=== PATIENT | female | born 1955 | race Two or more races ===

== ENCOUNTER 2025-02-06 08:17 | Emergency (ER) | payer MEDICARE, SELFPAY ==
[2025-02-06 08:33] VITALS: BP 138/90; PULSE 89; RESP 18; TEMP 36.9; O2SAT 99; BMI 20.2
--- NOTE | 2025-02-06 08:37 | EDNOTE_ITS ---
<Statement entered by Rhoda Blackwell MD - 02/18/25 11:17> As co-signing physician, I was present and available for consult prn. I concur with the plan and care as documented by the midlevel provider. ED Extremity Problem RME/HPI General Chief complaint: Extremity Problem,Nontraumatic Stated complaint: RIGHT ARM PAIN S/P FALL 1 WEEK AGO Time Seen by Provider: 02/06/25 08:22 Arrival date/time: 02/06/25 08:17 69-year-old female with a history of type 2 diabetes presents to the emergency room with a chief complaint of tenderness and pain to her right shoulder x 2 weeks. Patient states she had a ground-level fall in which she slipped and injured her right shoulder. Limitations: no limitations Related Data Home Medications ?Medication ?Instructions ?Recorded ?Confirmed glipizide 5 mg tablet 5 mg PO BID 01/04/21 2 metformin 1,000 mg tablet 1,000 mg PO BID 01/04/2108/27 omeprazole 20 mg capsule,delayed 20 mg PO QDAY PRN Aci d Reflux 04/19/21 07/11/21 release ibuprofen 600 mg tablet 600 mg PO TID PRN Pain 07/0907/11/21 pioglitazone 30 mg tablet 30 mg PO DAILY 07/09/2108/27 Previous Rx's ?Medication ?Instructions ?Recorded acetaminophen 300 mg-codeine 30 mg 1 tab PO Q6H PRN pa in #10 tabs 07/11/21 tablet cephalexin 500 mg capsule 500 mg PO BID #3 caps Allergies Allergy/AdvReac Type Severity Reaction Status Date / Time No Known Allergies Allergy Verified 01/04/22 08:08 Review of Systems Review of Systems Systems Reviewed: All systems reviewed, normal except as documented Constitutional Constitutional: Reports system reviewed and no additional complaints, except as documented, Denies fatigue, Denies fever(s), Denies headache(s) and Denies weakness Eyes Eyes: Reports system reviewed and no additional complaints, except as documented, Denies blurry vision and Denies change in vision ENT Ears, Nose, Mouth, and Throat: Reports system reviewed and no additional complaints, except as documented, Denies otalgia, Denies headache(s), Denies nasal congestion, Denies throat swelling and Denies vertigo Cardiovascular Cardiovascular: Reports system reviewed and no additional complaints, except as documented, Denies chest pain, Denies dyspnea and Denies dyspnea on exertion Respiratory Respiratory: Reports system reviewed and no additional complaints, except as documented, Denies chest congestion, Denies cough, Denies dyspnea, Denies dyspnea on exertion and Denies wheezing Gastrointestinal Gastrointestinal: Reports system reviewed and no additional complaints, except as documented, Denies abdominal pain, Denies cramping, Denies nausea and Denies vomiting Genitourinary Genitourinary: Reports system reviewed and no additional complaints, except as documented Musculoskeletal Musculoskeletal: Reports system reviewed and no additional complaints, except as documented, Reports arthralgias, Denies back pain, Denies joint swelling and Reports limited range of motion Integumentary/Breasts Skin/Breast: Reports system reviewed and no additional complaints, except as documented and Denies wounds Neurologic Neurologic: Reports system reviewed and no additional complaints, except as documented, Denies confusion, Denies headache(s), Denies lack of coordination, Denies vertigo and Denies weakness Psychiatric Psychiatric: Reports system reviewed and no additional complaints, except as documented, Denies anxiety, Denies confusion, Denies depression, Denies paranoia, Denies suicidal ideation and Denies tactile hallucinations Endocrine Endocrine: Reports system reviewed and no additional complaints, except as documented and Denies fatigue Hematologic/Lymphatic Hematologic/Lymphatic: Reports system reviewed and no additional complaints, except as documented and Denies lymphadenopathy Allergic/Immunologic Allergic/Immunologic: Reports system reviewed and no additional complaints, except as documented, Denies throat swelling, Denies urticaria and Denies wheezing ED Exam General Limitations: Present no limitations General appearance: Present alert and in no apparent distress Head Head exam: Present atraumatic Eye Eye exam: Present normal appearance, PERRL and EOMI ENT ENT exam: Present normal exam, normal oropharynx and mucous membranes moist Neck Neck exam: Present normal inspection, full ROM and trachea midline Chest Chest inspection: Present normal inspection and symmetric chest wall rise Respiratory Respiratory exam: Present normal lung sounds bilaterally Cardiovascular Cardiovascular exam: Present regular rate, normal rhythm and normal heart sounds Abdominal Exam Abdominal exam: Present soft and normal bowel sounds Extremities Exam Extremities exam: Present normal inspection and full ROM Back Exam Back exam: Present normal inspection and full ROM Neurological Exam Neurological exam: Present alert, oriented X3 and CN II-XII intact Psychiatric Psychiatric exam: Present normal affect and normal mood Skin Skin exam: Present warm, dry, intact and normal color Course Quality Measures none Orders Category Date Time Status sling [Splint / Immobilizer] STAT Care 02/06/25 08:36 Active Ketorolac Inj [Toradol Inj] Med 02/06/25 08:36 Discontinued 30 mg IM X1 ONE Vital Signs Vital signs: Vital Signs Temperature 98.5 F 02/06/25 08:33 Pulse Rate 89 02/06/25 08:33 Respiratory Rate 18 02/06/25 08:33 Blood Pressure 138/90 H 02/06/25 08:33 Pulse Oximetry (%) 99 02/06/25 08:33 Oxygen Delivery Method Room Air 02/06/25 08:33 Extremity Problem MDM Narrative MDM Narrative:: 69-year-old female with a history of type 2 diabetes presents to the emergency room with a chief complaint of tenderness and pain to her right shoulder x 2 weeks. Patient states she had a ground-level fall in which she slipped and injured her right shoulder. Patient states she has had imaging which was negative for any acute fractures or dislocations. Physical examination shows tenderness to the AC joint. The patient also has a very limited range of motion and is unable to lift her arm above her head. Patient states she has had imaging completed which was negative for any acute fracture or dislocation. Patient states this occurred 2 weeks ago and the pain is still hurting her. The patient was educated that she will need to follow-up with her primary care provider as a referral for an MRI to assess for any ligament damage or tears may be indicated. Patient was discharged and educated to follow-up with primary care provider in the next 24 to 48 hours and return to the emergency room for any evidence of worsening signs or symptoms Patient data External records reviewed:: [facility] previous records Clinical information provided by:: patient Social determinants that could affect healthcare access:: none Patient has the following chronic illnesses:: No chronic illness How is presenting disease/condition affected by chronic disease/condition?: no chronic disease Evaluation data The following diagnostics were reviewed and interpreted by me:: lab results and radiology exam(s) Lab and/or radiology exams considered but not ordered:: Labs and radiology exams considered in order Interpretation Summary: N/A Medications / Prescriptions Medications or Prescriptions considered but not ordered:: Medication given Medication administrations:: Medication Administration History Discontinued Medications Ketorolac Tromethamine (Ketorolac Inj 60 Mg/2 Ml Vial) 30 mg IM X1 ONE Stop: 02/06/25 08:37 Last Admin: 02/06/25 08:52 Dose: 30 mg Documented By: BOBBY Medication given Consultations Consultation(s) initiated? (list below): No Diagnosis Extremity Problem Differential Diagnosis: other (Right shoulder sprain/right shoulder fracture/ligament damage and shoulder) Most likely diagnosis given after review of the tests above:: Right shoulder sprain Admission Indicated Admission indicated?: not indicated Admission Request Was there a request for admission?: No Disposition Plan Disposition Plan: Discharge Discharge Attestation Discharge Attestation: The patient and all family members were given an opportunity to ask questions and understood the discharge instructions. Discharge instructions specifically effects, indications for sooner follow up or return to the emergency department, and the expected course of current diagnosis. Patient condition: Stable Discharge Plan Plan Patient Disposition: HOME (Self Care) Discharge Disposition comment: Stable Prescriptions/Referrals Prescriptions/Med Rec: No Action omeprazole 20 mg Capsule,Delayed Release(Dr/Ec) 20 mg PO QDAY PRN (Reason: Acid Reflux) ibuprofen 600 mg tablet 600 mg PO TID PRN (Reason: Pain) pioglitazone 30 mg tablet 30 mg PO DAILY acetaminophen-codeine 300-30 mg tablet 1 tab PO Q6H PRN (Reason: pain) Qty: 10 0RF cephalexin 500 mg capsule 500 mg PO BID Qty: 3 0RF metformin 1,000 mg Tablet 1,000 mg PO BID glipizide 5 mg tablet 5 mg PO BID Problem List Clinical Impression: Sprain of right shoulder Patient/Caregiver Discharge Instructions Education Materials: ED Shoulder Sprain Additional Instructions: Por favor, consulte con castro m?dico de cabecera en las pr?ximas 24 a 48 horas. Me menciona que ya le realizaron estudios de imagen del hombro y que las im?genes fueron negativas para fracturas o luxaciones agudas. A?n tiene un rango de movimiento muy limitado y le recomiendo que acuda a castro m?dico de cabecera para que le realicen ciro resonancia magn?beatrice ambulatoria del hombro y eval?e si hay da?o o desgarro de ligamentos. Si observa alg?n empeoramiento de los signos o s?ntomas, acuda a urgencias de inmediato. Print Language: Welsh Stand Alone Forms: Emy Award Info., Patient Portal Info Letter PA/PRODUCTION CONTROL SCHEDULER Supervising Physician PA/PRODUCTION CONTROL SCHEDULER Supervising Physician: Dr. BLACKWELL
[2025-02-06] MEDS: KETOROLAC INJ 60 MG/2 ML VIAL 30 MG IM (08:52)
== END 2025-02-06 10:00 | disposition home or self-care (01) ==
LOC: SERX 09:14
PROVIDERS: Emergency Provider Nurse Practitioner Family; PCP Physician Assistant
DX: S43.401A Unspecified sprain of right shoulder joint, initial encounter (principal); W01.0XXA Fall on same level from slipping, tripping and stumbling without subsequent striking against object, initial encounter
CPT/HCPCS: 96372; 99284; J1885

== ENCOUNTER 2025-03-17 10:41 | Emergency (ER) | payer MEDICARE, MEDICAID, SELFPAY ==
[2025-03-17 10:45] VITALS: BP 145/80; PULSE 89; RESP 18; TEMP 36.8; O2SAT 95
--- NOTE | 2025-03-17 10:59 | XR_ITS ---
Examination: CT abdomen with intravenous contrast CT pelvis with intravenous contrast 2-D coronal reconstructions 2-D sagittal reconstructions Date and time of exam: March 17, 2025, 12:37 p.m INDICATIONS: Generalized abdominal pain and nausea beginning 3 days ago. CTDI: vol (mGy) 4.26 DLP: (mGycm) 210 Technique: Multiple axial sections of the abdomen and pelvis have been obtained. 64 slice high-resolution scanner used. 3 mm axial sections have been obtained, post intravenous injection 60 cc [id number] 2-D sagittal, coronal reconstructions obtained. Low dose protocols were performed. One or more of the following dose reduction techniques were used; automated exposure control, adjustment of the mA and/or KV according to patient size, use of iterative reconstruction technique. Findings: No focal liver lesions No gallstones Common bile duct is not enlarged Spleen is unremarkable No pancreatic or adrenal mass. Edema involving the right kidney Air in the right renal collecting system Mild right hydronephrosis Aortic calcification no aneurysmal dilatation No bowel obstruction Normal appendix No diverticulitis Atrophic anteverted uterus No bladder mass Prominent osteopenia IMPRESSION: Right pyelonephritis Normal appendix No bowel obstruction
--- NOTE | 2025-03-17 11:23 | PD.EDABDPN ---
ED Abdominal Pain RME/HPI General Chief Complaint: Abdominal Pain Stated complaint: ABDOMINAL PAIN Time seen by provider: 03/17/25 10:58 Arrival date/time: 03/17/25 10:41 Limitations: no limitations RME / HPI RME / HPI narrative: 69 year old female with history of diabetes presents to the ED BIBA from home for evaluation of abdominal pain beginning 5-6 days ago and worsening this morning. Described as aching in sensation that is located diffusely, rating 9/10 in severity. Accompanied by nausea, vomiting, and some constipation. Denies any fevers, chills, chest pain, cough, shortness of breath, or dysuria. Related Data Home Medications ?Medication ?Instructions ?Recorded ?Confirmed glipizide 5 mg tablet 5 mg PO BID 01/04/21 07/11/21 metformin 1,000 mg tablet 1,000 mg PO BID 01/04/21 07/11/21 omeprazole 20 mg capsule,delayed 20 mg PO QDAY PRN Acid Reflux 04/19/21 07/11/21 release ibuprofen 600 mg tablet 600 mg PO TID PRN Pain 07/09/21 07/11/21 pioglitazone 30 mg tablet 30 mg PO DAILY 07/09/21 07/11/21 Previous Rx's ?Medication ?Instructions ?Recorded acetaminophen 300 mg-codeine 30 mg 1 tab PO Q6H PRN pain #10 tabs 07/11/21 tablet cephalexin 500 mg capsule 500 mg PO BID #3 caps 07/11/21 Allergies Allergy/AdvReac Type Severity Reaction Status Date / Time No Known Allergies Allergy Verified 01/04/22 08:08 Review of Systems Review of Systems Systems Reviewed: All systems reviewed, normal except as documented Past Medical History Past Medical History CARDIAC: Positive Hypertension RESPIRATORY: Positive Asthma GASTROINTESTINAL: Positive Gastrointestinal Disorders and Gastroesophageal Reflux Disease REPRODUCTIVE: Positive Previous Pregnancies MUSCULOSKELETAL: Positive Musculoskeletal Disorders and Arthritis ENT: Positive Cataracts and Deafness ENDOCRINE: Positive Endocrine Disorders and Diabetes Mellitus Type 2 (glipizide) OTHER HISTORY: Positive Chicken Pox and Measles Family History FAMILY HISTORY: Positive Family Cancer Surgical History SURGICAL: Positive Tubal Ligation Social History SMOKING STATUS: Never smoker ED Exam General Limitations: Present no limitations General appearance: Present alert and other (appears uncomfortable) Head Head exam: Present atraumatic, normocephalic and normal inspection Eye Eye exam: Present normal appearance, PERRL and EOMI ENT ENT exam: Present normal exam, normal oropharynx and mucous membranes moist Neck Neck exam: Present normal inspection, full ROM and trachea midline Chest Chest inspection: Present normal inspection and symmetric chest wall rise Respiratory Respiratory exam: Present normal lung sounds bilaterally Cardiovascular Cardiovascular exam: Present regular rate, normal rhythm and normal heart sounds Abdominal Exam Abdominal exam: Present soft, tenderness (mildly tender mid upper abdomen, not localized to the right lower quadrant, no percussion tenderness) and normal bowel sounds Extremities Exam Extremities exam: Present normal inspection and full ROM Back Exam Back exam: Present normal inspection and full ROM Neurological Exam Neurological exam: Present alert, oriented X3 and CN II-XII intact Psychiatric Psychiatric exam: Present normal affect and normal mood Skin Skin exam: Present warm, dry, intact and normal color Course Quality Measures none Orders Category Date Time Status CT Screening NOW Care 03/17/25 11:02 Active Twister Tender Paper STAT Care 03/17/25 11:02 Active Continuous Pulse Oximetry STAT Care 03/17/25 11:02 Completed In and Out Catheter X1 Care 03/17/25 14:30 Active Insert IV STAT Care 03/17/25 11:02 Active NPO STAT Care 03/17/25 11:02 Active Referral - Furniture And Bedding Inspector Stat Cons 03/17/25 15:[address] abdomen pelvis w con Stat Exams 03/17/25 10:59 Completed Blood Culture (Lab) Stat Lab 03/17/25 15:10 Received CBC Stat Lab 03/17/25 11:26 Completed Comprehensive Metabolic Panel Stat Lab 03/17/25 11:26 Completed Lactate (Lactic Acid) Stat Lab 03/17/25 15:06 Completed Lipase Stat Lab 03/17/25 11:26 Completed Magnesium Stat Lab 03/17/25 11:26 Completed Prothrombin Time with INR Stat Lab 03/17/25 11:26 Completed Urinalysis Stat Lab 03/17/25 14:47 Completed Imipenem/Cilastatin Inj [Primaxin Inj] 1,000 mg Med 03/17/25 15:40 Discontinued Sodium Chloride 0.9% 250 ml [Ns] 250 ml IV X1 Morphine* Inj Med 03/17/25 10:59 Discontinued 2 mg IVP X1 ONE Ondansetron Inj [Zofran Inj] Med 03/17/25 11:02 Discontinued 4 mg IVP X1 ONE Pantoprazole Inj [Protonix Inj] Med 03/17/25 11:03 Discontinued 40 mg IVP X1 ONE Sodium Chloride 0.9% 1000 ml [Ns] 1,000 ml Med 03/17/25 10:59 Discontinued IV 999 mls/hr Sodium Chloride 0.9% 1000 ml [Ns] 1,000 ml Med 03/17/25 14:48 Discontinued IV 999 mls/hr cefTRIAXone [Rocephin] 2 gm Med 03/17/25 14:46 Discontinued SODIUM CHLORIDE 0.9% (Popper) [Ns 0.9% (P)] 50 ml IV X1 Vital Signs Vital signs: Vital Signs Temperature 98.2 F 03/17/25 10:45 Pulse Rate 89 03/17/25 10:45 Respiratory Rate 18 03/17/25 10:45 Blood Pressure 145/80 H 03/17/25 10:45 Pulse Oximetry (%) 95 03/17/25 10:45 Oxygen Delivery Method Room Air 03/17/25 10:45 Pulse ox is 95% on room air which is adequate. Abdominal Pain MDM MDM Narrative MDM Narrative:: IJosefa, kaylyn scribing for and in the presence of Dr. Norwood. The CT scan of abdomen/pelvis shows she had right pyelonephritis with air present in the body of the right kidney. The urine is positive for UTI. WBC is elevated at 25.3. I discussed case with hospitalist team C. However, have decided to transfer the patient for urology and infectious disease. Patient had received Rocephin prior to CT results but will add Imipenem 1 gram x 1. I discussed findings with the patient and family. They are in agreement with plan to transfer. 1705: I spoke with transfer nurse at Dr. Chew at [facility]. Discussed patients PMHx, HPI, ED course, exam findings, labs, and radiology results. They accept the patient for transfer, ER to ER. Patient data External records reviewed:: [facility] previous records and EMS form Clinical information provided by:: patient and EMS Social determinants that could affect healthcare access:: none Patient has the following chronic illnesses:: diabetes How is presenting disease/condition affected by chronic disease/condition?: exacerbated by Evaluation data The following diagnostics were reviewed and interpreted by me:: lab results and radiology exam(s) Lab and/or radiology exams considered but not ordered:: None Interpretation Summary: Ordering Physician: Bal Norwood MD Date of Service: 03/17/25 Procedure(s): CT abdomen pelvis w con Accession Number(s): [id number] cc: Bal Norwood MD; Zac Bales PA-C; Alcides Thomson MD~ Examination: CT abdomen with intravenous contrast CT pelvis with intravenous contrast 2-D coronal reconstructions 2-D sagittal reconstructions Date and time of exam: March 17, 2025, 12:37 p.m INDICATIONS: Generalized abdominal pain and nausea beginning 3 days ago. CTDI: vol (mGy) 4.26 DLP: (mGycm) 210 Technique: Multiple axial sections of the abdomen and pelvis have been obtained. 64 slice high-resolution scanner used. 3 mm axial sections have been obtained, post intravenous injection 60 cc [id number] 2-D sagittal, coronal reconstructions obtained. Low dose protocols were performed. One or more of the following dose reduction techniques were used; automated exposure control, adjustment of the mA and/or KV according to patient size, use of iterative reconstruction technique. Findings: No focal liver lesions No gallstones Common bile duct is not enlarged Spleen is unremarkable No pancreatic or adrenal mass. Edema involving the right kidney Air in the right renal collecting system Mild right hydronephrosis Aortic calcification no aneurysmal dilatation No bowel obstruction Normal appendix No diverticulitis Atrophic anteverted uterus No bladder mass Prominent osteopenia IMPRESSION: Right pyelonephritis Normal appendix No bowel obstruction Dictated By: Alcides Thomson MD Signed By: <Electronically signed by Alcides Thomson MD in OV> 03/17/25 1331 Medications / Prescriptions Medications or Prescriptions considered but not ordered:: None Medication administrations:: Medication Administration History Discontinued Medications Sodium Chloride (Ns) 1,000 mls @ 999 mls/hr IV .Q1H1M ONE Stop: 03/17/25 11:59 Last Infusion: 03/17/25 12:34 Dose: Infused Documented By: Admin: 03/17/25 11:33 Dose: 999 mls/hr Documented By: EF Ceftriaxone Sodium 2 gm/ (Sodium Chloride) 50 mls @ 100 mls/hr IV X1 ONE Stop: 03/17/25 15:15 Last Infusion: 03/17/25 15:33 Dose: Infused Documented By: Admin: 03/17/25 15:03 Dose: 100 mls/hr Documented By: TM Sodium Chloride (Ns) 1,000 mls @ 999 mls/hr IV .Q1H1M ONE Stop: 03/17/25 15:48 Last Infusion: 03/17/25 16:07 Dose: Infused Documented By: Admin: 03/17/25 15:06 Dose: 999 mls/hr Documented By: TM Imipenem/Cilastatin Sodium 1, (000 mg/ Sodium Chloride) 250 mls @ 250 mls/hr IV X1 ONE Stop: 03/17/25 16:39 Last Admin: 03/17/25 16:10 Dose: 250 mls/hr Documented By: TM Morphine Sulfate (Morphine Sulf Inj 4 Mg/Ml Vial) 2 mg IVP X1 ONE Stop: 03/17/25 11:00 Last Admin: 03/17/25 11:34 Dose: 2 mg Documented By: EF Ondansetron HCl (Ondansetron Inj 2 Mg/Ml Inj 2 Ml) 4 mg IVP X1 ONE Stop: 03/17/25 11:03 Last Admin: 03/17/25 11:34 Dose: 4 mg Documented By: EF Pantoprazole Sodium (Pantoprazole Inj 40 Mg Vial) 40 mg IVP X1 ONE Stop: 03/17/25 11:04 Last Admin: 03/17/25 11:34 Dose: 40 mg Documented By: EF See above Consultations Consultation(s) initiated? 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 Admission Indicated Admission indicated?: not indicated Explain why admission is indicated or not indicated:: txfer for uro Admission Request Was there a request for admission?: No Disposition Plan Disposition Plan: Transfer Discharge Plan Plan Patient Disposition: [facility] Pt Being Transferred to: [facility] Service Needed for Transfer: Urology Prescriptions/Referrals Prescriptions/Med Rec: No Action omeprazole 20 mg Capsule,Delayed Release(Dr/Ec) 20 mg PO QDAY PRN (Reason: Acid Reflux) ibuprofen 600 mg tablet 600 mg PO TID PRN (Reason: Pain) pioglitazone 30 mg tablet 30 mg PO DAILY acetaminophen-codeine 300-30 mg tablet 1 tab PO Q6H PRN (Reason: pain) Qty: 10 0RF cephalexin 500 mg capsule 500 mg PO BID Qty: 3 0RF metformin 1,000 mg Tablet 1,000 mg PO BID glipizide 5 mg tablet 5 mg PO BID Referrals: Zac Bales PA-C [Primary Care Provider] - In 1 week Problem List Clinical Impression: Emphysematous pyelonephritis Patient/Caregiver Discharge Instructions Print Language: Mohawk Stand Alone Forms: Emy Award Info., Patient Portal Info Letter
[2025-03-17] MEDS: SODIUM CHLORIDE 0.9% 1000 ML 1,000 ML 999 ML IV ×2 (11:33→15:06)
[2025-03-17] MEDS: MORPHINE SULF INJ 4 MG/ML VIAL 2 MG IVP (11:34)
[2025-03-17] MEDS: ONDANSETRON INJ 2 MG/ML INJ 2 ML 4 MG IVP (11:34)
[2025-03-17 11:39] LABS: Basophils # (Auto) 0.0 Thou/mm3 (0.0-0.2); Basophils % (Auto) 0 % (0-2.5); Eosinophils # (Auto) 0.0 Thou/mm3 (0.0-0.5); Eosinophils % (Auto) 0 % (0-10); Hematocrit 39.6 % (36.0-46.0); Hemoglobin 13.9 g/dL (12.0-16.0); Immature Granulocytes Auto 0.13 Thou/mm3 (0.00-0.00); Lymphocytes # (Auto) 1.1 Thou/mm3 (1.0-4.8); Lymphocytes % (Auto) 4 % (10-50); Mean Corpuscular HGB Conc 35.1 g/dl (31.0-37.0); Mean Corpuscular Hemoglobin 31.2 pg (25.0-35.0); Mean Corpuscular Volume 89 fL (80-100); Monocytes # (Auto) 0.9 Thou/mm3 (0.0-0.8); Monocytes % (Auto) 4 % (0-12); Neutrophils # (Auto) 23.1 Thou/mm3 (1.8-7.7); Neutrophils % (Auto) 91 % (37-80); Nucleated Red Blood Cell # 0.00 Thou/mm3 (0.00-0.00); Nucleated Red Blood Cell % 0 /100 WBC (0); Platelet Count 447 Thou/mm3 (140-440); RDW Standard Deviation 41.4 fL (36.4-46.3); Red Blood Count 4.46 Miln/mm3 (4.00-5.20); White Blood Count 25.3 Thou/mm3 (3.6-11.0)
[2025-03-17 11:47] LABS: INR 1.0 (0.9-1.3); Prothrombin Time 10.7 Seconds (9.0-12.2)
[2025-03-17 11:52] LABS: Alanine Aminotransferase 13 U/L (10-49); Albumin, Serum 4.0 gm/dL (3.4-4.8); Albumin/Globulin Ratio 1.4 (1.2-2.2); Alkaline Phosphatase 121 U/L (46-116); Anion Gap 11 (7-16); Aspartate Amino Transferase 12 U/L (0-34); BUN/Creatinine Ratio 30 Ratio (12-20); Bilirubin,Total 0.4 mg/dL (0.3-1.2); Blood Urea Nitrogen 27 mg/dL (9-23); Calcium 9.3 mg/dL (8.3-10.6); Calcium (Corrected) 9.3 mg/dL (8.5-10.1); Carbon Dioxide 28.7 mMol/L (20.0-31.0); Chloride 97 mMol/L (98-107); Creatinine (Component) 0.9 mg/dL (0.6-1.3); Globulin 2.8 gm/dL (2.3-3.5); Glucose 320 mg/dL (74-106); Lipase 32 U/L (12-53); Magnesium 2.5 mg/dL (1.6-2.6); Osmolality,Calculated 290 (275-295); Potassium 5.3 mMol/L (3.4-5.1); Sodium 137 mMol/L (136-145); Total Protein 6.8 gm/dL (5.7-8.2); eGFR > 60 See Note
[2025-03-17 12:14] VITALS: PULSE 75
[2025-03-17 14:48] VITALS: BP 150/71; PULSE 71; RESP 18; TEMP 36.4; O2SAT 97
[2025-03-17 14:51] LABS: Collection Type, Urine Clean Catch
[2025-03-17] MEDS: cefTRIAXone 2 GM in SODIUM CHLORIDE 0.9% (Popper) 50 ML IV (15:03)
[2025-03-17 15:14] LABS: Bacteria,Urine Rare; Bilirubin,Urine Negative (Negative); Blood,Urine 2+ (Negative); Clarity,Urine Clear (Clear/Hazy); Color,Urine Lt-Yellow (Lt Yel-Yel); Glucose, Urine 4+ (Negative); Ketones,Urine 1+ (Negative); Leukocyte Esterase,Urine Positive (Negative); Nitrite,Urine Positive (Negative); PH,Urine 7.0 (5.0-7.0); Protein,Urine Negative (Neg - Trace); RBC,Urine 14 /hpf (0-3); Specific Gravity,Urine 1.050 (1.001-1.035); Squamous Epithelial Cell,Urine < 1 /hpf (0-5); Urobilinogen,Urine Negative mg/dL (0.0-1.0); WBC,Urine 82 /hpf (0-5)
[2025-03-17 15:26] LABS: Lactate (Lactic Acid) 1.3 mMol/L (0.4-2.0)
[2025-03-17 15:42] VITALS: BP 132/59; PULSE 83; RESP 17; TEMP 36.6; O2SAT 96
[2025-03-17] MEDS: IMIPENEM IV (16:10)
[2025-03-17] MEDS: CILASTATIN IV (16:10)
[2025-03-17] MEDS: SODIUM CHLORIDE 0.9% IV (16:10)
--- NOTE | 2025-03-17 16:18 | PC.CM ---
Addendum entered by Montse Hernandez RN 03/17/25 18:00: Patient accepted to [facility] ED to ED with Dr. Chew. Phone # [phone]. Addendum entered by Montse Hernandez RN 03/17/25 17:10: 1705 I received a call from Sigrid with [facility] and she wanted to speak to Dr. Norwood. I connected Dr. Norwood and Sigrid with a conference call. [id number] I faxed over information to [facility] and I started packet. I pushed over images and I stared packet. Original Note: [id number] I received a referral to transfer patient for urology services for emphysematous pyelonephritis.
[2025-03-17 18:13] VITALS: BP 157/67; PULSE 75; RESP 18; TEMP 37.2; O2SAT 97
[2025-03-17 20:02] VITALS: BP 131/56; PULSE 77; RESP 19; TEMP 36.9; O2SAT 96
== END 2025-03-17 21:00 | disposition short-term general hospital (02) ==
PROVIDERS: Emergency Provider Family Medicine; PCP Physician Assistant
DX: N12 Tubulo-interstitial nephritis, not specified as acute or chronic (principal); E11.9 Type 2 diabetes mellitus without complications; K59.00 Constipation, unspecified; Z79.84 Long term (current) use of oral hypoglycemic drugs; Z98.51 Tubal ligation status
CPT/HCPCS: 36415; 74177; 80053; 81001; 83605; 83690; 83735; 85025; 85610; 87040; 87077; 87186; 99284; A4649; J0696; J0743; J2270; J2405; J2470; J7030; J7050; Q9967